=== PATIENT | male | born 1980 | race Caucasian/White ===

== ENCOUNTER 2020-03-13 08:24 | Emergency (ER) | payer SELFPAY ==
[~2020-03-13] VITALS: Ht 167.6 cm; Wt 68.0 kg
--- NOTE | 2020-03-13 08:30 | NUR ---
Patient to ER bed ch1 to gown for evaluation. Side rails up.
[2020-03-13 08:33] VITALS: BP_SYST 103
--- NOTE | 2020-03-13 08:33 | NUR ---
Pt brought by law enforcement with complaint of L hip pain. Pt was arrested on 03/12 at 0400 for assault with deadly wapon and later began to have hip pain. then brought him over to get checked out. Pt VSS, resting comfortably awaiting MD.
--- NOTE | 2020-03-13 08:35 | NUR ---
ER at bedside examining patient.
[2020-03-13 08:45] VITALS: BP_SYST 103
--- NOTE | 2020-03-13 08:45 | NUR ---
Patient given written and verbal discharge instructions and verbalizes understanding. ER MD discussed with patient the results and treatment provided. Patient in stable condition. ID arm band removed. Patient educated on pain management and to follow up with PMD. Pain Scale 4 tolerable. Opportunity for questions provided and answered. Medication side effect fact sheet provided.
== END 2020-03-13 08:45 | disposition home or self-care (01) ==
LOC: SED 08:24
DX: M25.552 Pain in left hip (principal)
CPT/HCPCS: 99283